=== PATIENT | female | born 1930 | race Caucasian/White ===

== ENCOUNTER 2017-07-23 08:34 | Emergency (ER) | payer MEDICARE, OTHER ==
[2017-07-23] MEDS ORDERED: methylPREDNISolone Sod Succ/PF 125 MG/2 ML VIAL ONE (08:58)
[2017-07-23] MEDS ORDERED: Albuterol Sulfate 2.5 mg/0.5 ml Neb ONE ×2 (09:01→09:03)
[2017-07-23 09:26] LABS: #Eosinphils 0.2 thou/uL (0.0-0.7); #Lymphocytes 0.8 thou/uL (1.20-3.40); #Monocytes 0.7 thou/uL (0.11-0.59); %Basophils 0.3 % (0.0-1.0); %Eosinophils 1.4 % (0.0-10.0); %Lymphocytes 5.8 % (21.0-51.0); %Monocytes 5.4 % (0.0-10.0); Hematocrit 46.9 % (36.0-47.0); Mean Platelet Volume 8.1 fL (7.4-10.4); Red Blood Cell (RBC) Count 4.93 mill/uL (4.20-5.40); White Blood Cell (WBC) Count 13.7 thou/uL (4.8-10.8)
[2017-07-23] MEDS ORDERED: Magnesium Sulfate 2 GM/100 ML BAG ONE (09:31)
[2017-07-23 09:36] LABS: PTT 32.5 SEC (22.9-36.1); Prothrombin Time 14.7 SEC (12.0-14.7)
[2017-07-23 09:50] LABS: ALT (SGPT) 26 U/L (8-55); AST (SGOT) 39 U/L (5-34); Alkaline Phosphatase 77 U/L (40-150); Anion Gap 10 mmol/L (10-20); BUN (Urea Nitrogen) 17 mg/dL (9.8-20.1); Bilirubin, Total 0.9 mg/dL (0.2-1.2); Calc. Creatinine Clearance 0 mL/min (70-130); Calcium 9.3 mg/dL (7.8-10.44); Carbon Dioxide 27 mmol/L (23-31); Chloride 99 mmol/L (98-107); Estimated GFR-MDRD 57; Globulin 3.2 g/dL (2.4-3.5); Protein, Total 6.9 g/dL (6.0-8.3)
[2017-07-23 09:53] LABS: Troponin I Less than 0.010 ng/mL (< 0.028)
--- NOTE | 2017-07-23 10:34 | RAD ---
PORTABLE AP CHEST XRAY: DATE: 07/23/17. HISTORY: Cough. COMPARISON: 11/20/16. FINDINGS: Dual-lead left subclavian cardiac pacemaking device remains in place. Cardiac silhouette and pulmona ry vasculature are within normal limits. There are minimal scattered increased linear densities grea ter at each lung base probably related to mild chronic lung changes. No new focal area of consolidat ion or pleural fluid is seen. There is osteopenia. Chest is stable from prior exam. IMPRESSION: Mild chronic lung changes without evidence of an acute cardiopulmonary process. Chest is stable from prior exam. POS: [facility]
== END 2017-07-23 12:15 | disposition home or self-care (01) ==
LOC: ERS 08:34
DX: J20.9 Acute bronchitis, unspecified (principal); E78.5 Hyperlipidemia, unspecified; I48.91 Unspecified atrial fibrillation; I10 Essential (primary) hypertension; F17.210 Nicotine dependence, cigarettes, uncomplicated
CPT/HCPCS: 71010; 80053; 82553; 83605; 83880; 84484; 85025; 85610; 85730; 93005; 94760; 96365; 96375; 99406; J2930; J3475; J7611

== ENCOUNTER 2017-11-17 10:34 | Outpatient (CLI) | payer MEDICARE, OTHER | END 2017-11-17 10:35 | disposition home or self-care (01) | LOC: BICMAMMO 10:34 | PROVIDERS: ATTEND Specialist | DX: Z08 Encounter for follow-up examination after completed treatment for malignant neoplasm (principal); Z85.3 Personal history of malignant neoplasm of breast | CPT/HCPCS: 77066; G0279 ==

== ENCOUNTER 2017-11-17 11:14 | Outpatient (CLI) | payer MEDICARE, OTHER | END 2017-11-17 11:15 | disposition home or self-care (01) | LOC: BICRAD 11:14 | PROVIDERS: ATTEND Specialist | DX: Z00.00 Encounter for general adult medical examination without abnormal findings (principal); M43.8X5 Other specified deforming dorsopathies, thoracolumbar region | CPT/HCPCS: 71046 ==